=== PATIENT | female | born 1970 | race Caucasian/White ===

== ENCOUNTER 2025-05-05 17:09 | Emergency (ER) | payer MEDICARE ==
[~2025-05-05] VITALS: Ht 160 cm; Wt 81.6 kg
[2025-05-05] MEDS: KETOROLAC TROMETHAMINE 30 MG/ML VIAL IM STA (18:43)
[2025-05-05] MEDS ORDERED: KETAMINE HCL INJ 50 MG/ML 10 ML VIAL ONE (22:53)
[2025-05-05] MEDS ORDERED: SODIUM CHLORIDE 0.9% 1000ML 1,000 ML ONE (23:25)
[2025-05-05] MEDS: KETAMINE 50MG/5ML SYR IV ONE (23:47)
[2025-05-05] MEDS: PROPOFOL IV EMULSION 10 MG/ML 20 ML VIAL IV ONE (23:48)
[2025-05-05 23:49] VITALS: BP 149/105; PULSE 99; RESP 20; TEMP 98
[2025-05-05] MEDS ORDERED: ONDANSETRON ODT4 MG PO (23:55)
[2025-05-05] MEDS ORDERED: HYDROCODON-ACE1 EA11 PO (23:55)
[2025-05-06] MEDS: ONDANSETRON HCL INJ 2MG/ML 2ML 2 MG/ML VIAL IV STA (00:26)
[2025-05-06] MEDS: Morphine 4mg INJECTION 4 MG/ML INJ IV STA (00:26)
[2025-05-06 01:16] VITALS: PULSE 88; RESP 16; TEMP 98.1; O2SAT 95
== END 2025-05-06 01:20 | disposition home or self-care (01) ==
LOC: ER 17:46
DX: S52.591A Other fractures of lower end of right radius, initial encounter for closed fracture (principal); S52.611A Displaced fracture of right ulna styloid process, initial encounter for closed fracture; V29.888A Rider (driver) (passenger) of other motorcycle injured in other specified transport accidents, initial encounter; Y93.89 Activity, other specified; I10 Essential (primary) hypertension; E11.9 Type 2 diabetes mellitus without complications; K21.9 Gastro-esophageal reflux disease without esophagitis; F17.210 Nicotine dependence, cigarettes, uncomplicated
CPT/HCPCS: 25605; 71046; 73100; 73110; 99284; J1885; J2270; J2405; J2704; J7030